=== PATIENT | male | born 1955 | race Two or more races ===

== ENCOUNTER 2023-11-27 06:30 | Day surgery (SDC) | payer OTHER ==
[~2023-11-27] VITALS: Ht 180.3 cm; Wt 100.2 kg
[~2023-11-27 06:30] MED LIST: LISI20TA56 PO
[2023-11-27] MEDS ORDERED: ceFAZolin 2 GM/D5W50ml 50 ML IV ONE (06:43)
[2023-11-27 06:50] VITALS: TEMP 97.7
[2023-11-27] MEDS ORDERED: ROCURONIUM 10MG/ML 10ML VIAL IV ONE (07:06)
[2023-11-27] MEDS ORDERED: SUCCINYLCHOLINE CHLORIDE 20 MG/ML 10ML VIAL IV ONE (07:06)
[2023-11-27] MEDS ORDERED: KETAMINE 50mg/ML 1ml syringe ONE (07:16)
[2023-11-27] MEDS ORDERED: fentaNYL CITRATE 100 MCG/2 ML VL ONE (07:16)
[2023-11-27] MEDS ORDERED: NEOSTIGMINE 1 MG/ML INJ (10mg/10ML VIAL) ONE (07:17)
[2023-11-27] MEDS ORDERED: ETOMIDATE (2MG/ML) 20ML VIAL IV ONE (07:17)
[2023-11-27] MEDS ORDERED: fentaNYL CITRATE 5 ML ONE ×2 (07:17→10:03)
[2023-11-27] MEDS ORDERED: SODIUM CHLORIDE LOCK 50 ML ONE (07:17)
[2023-11-27] MEDS ORDERED: GLYCOPYRROLATE 0.2 MG/ML 1ML VIAL ONE (07:17)
[2023-11-27] MEDS ORDERED: LIDOCAINE 1% INJ PF 5ML AMP ONE (07:17)
[2023-11-27] MEDS ORDERED: ONDANSETRON HCL 4 MG/2 ML VIAL ONE (07:17)
[2023-11-27] MEDS ORDERED: HYDROmorphone HCL 2 MG/ML VL/or syr ONE (07:17)
[2023-11-27] MEDS ORDERED: HYDROmorphone HCL 2 MG/ML VL/or syr IV PRN ×2 (07:45)
[2023-11-27] MEDS ORDERED: MORPHINE SULFATE INJ 2 MG/ml SYRG IV PRN (07:45)
[2023-11-27] MEDS ORDERED: KETOROLAC TROMETH 30 MG/ML 1ML VIAL IV ONE (07:45)
[2023-11-27] MEDS ORDERED: fentaNYL CITRATE 100 MCG/2 ML VL IV PRN (07:45)
[2023-11-27] MEDS ORDERED: MIDAZOLAM HCL 2MG/2ML 2ml VIAL (1mg/ml) ONE (08:03)
[2023-11-27] MEDS ORDERED: ceFAZolin 1GM VL ONE (10:36)
[2023-11-27 11:24] VITALS: O2SAT 95
[2023-11-27] MEDS ORDERED: LABETALOL HCL 5 MG/ML 4ML SYRINGE IV ONE ×2 (12:45)
[2023-11-27] MEDS: METOCLOPRAMIDE HCL 5MG/ml INJ 2ml VIAL IV ONE (12:46)
[2023-11-27 12:51] VITALS: BP 146/75; PULSE 76; RESP 13; O2SAT 100
== END 2023-11-27 13:12 | disposition home or self-care (01) ==
LOC: SUR 06:30
PROVIDERS: ATTEND Surgery
DX: K40.90 Unilateral inguinal hernia, without obstruction or gangrene, not specified as recurrent (principal); I10 Essential (primary) hypertension; E66.9 Obesity, unspecified; Z68.30 Body mass index [BMI] 30.0-30.9, adult; Z79.899 Other long term (current) drug therapy
CPT/HCPCS: 49505; C1713; C1781; J0330; J0690; J1170; J2250; J2405; J2765; J3010; J3490; J7030

== ENCOUNTER 2025-01-18 10:02 | Inpatient (IN) | payer OTHER ==
[~2025-01-18] VITALS: Ht 180.3 cm; Wt 110.3 kg
[2025-01-18] MEDS ORDERED: ACETAMINOPHEN IV 1000 MG/100ML (10MG/ML) IV ONE (10:30)
[2025-01-18] MEDS ORDERED: CELECOXIB 100 MG CAP PO ONE (10:30)
[2025-01-18] MEDS ORDERED: GABAPENTIN 300 MG CAP PO ONE (10:30)
[2025-01-18] MEDS ORDERED: TRANEXAMIC ACID 20 ML ONE (10:34)
[2025-01-18] MEDS ORDERED: KETOROLAC TROMETH 30 MG/ML 1ML VIAL ONE (10:56)
[2025-01-18] MEDS ORDERED: LIDOCAINE 1% INJ PF 5ML AMP ONE (10:56)
[2025-01-18] MEDS ORDERED: GLYCOPYRROLATE 0.2 MG/ML 1ML VIAL ONE (10:56)
[2025-01-18] MEDS ORDERED: PROPOFOL 10 MG/ML 20 ML IV ONE ×3 (10:56→13:37)
[2025-01-18] MEDS ORDERED: ONDANSETRON HCL 4 MG/2 ML VIAL ONE (10:56)
[2025-01-18] MEDS ORDERED: KETAMINE 50mg/ML 1ml syringe ONE (10:57)
[2025-01-18] MEDS ORDERED: BUPIVACAINE 0.25% INJ 50ML VIAL ONE (11:32)
[2025-01-18] MEDS ORDERED: BUPIVACAINE HCL 50 ML ONE (11:32)
[2025-01-18] MEDS: CEFEPIME 1GM/ 50ML 50 ML IV ONE (11:33)
[2025-01-18] MEDS: ceFAZolin 2 GM/D5W50ml 50 ML IV ONE (11:33)
[2025-01-18] MEDS ORDERED: LIDOCAINE HCL 2% TOP JELLY 5ML TOP ONE (12:01)
[2025-01-18] MEDS ORDERED: BUPIVACAINE/DEXTROSE MPF 0.75% 2 ML AMP IT ONE (12:01)
[2025-01-18] MEDS: VANCOMYCIN HCL 1000 MG VL ONE (12:22)
--- NOTE | 2025-01-18 13:39 | DVHOP2 ---
Operative Report - 2 Report Details Date: 01/18/25 Preop Diagnosis: Left knee degenerative arthritis Postop Diagnosis: Left knee degenerative arthritis Surgeon: Sharon Dixon MD Brand Representative: Nate GLOVER Anesthesiologist: Maurilio Leonardo CRNA Anesthesia: Regional Drains: Leatha closed wound suction Implant: DonJoy size nine femur PS, size nine tibial base plate, 10 poly, 35 patella Consent: The patient was informed of the risks and benefits of the procedure. These include but are not limited to complications of anesthesia, postoperative infection, incomplete relief of symptoms, recurrence of symptoms, damage to blood vessels, nerves and tendons, deep venous thrombosis, pulmonary embolism and possible need for repeat surgery in the future. Complications: None Estimated Blood Loss: 100 cc Fluids: See anesthesia record Findings: Varus deformity, osteophytes, denuded cartilage with eburnated bone Indications for Surgery: Left knee degenerative arthritis with severe pain and functional impairment despite nonoperative management Name of Procedure Performed Left total knee arthroplasty Procedure Details Procedure Details: The patient was brought to the operating room and placed on the table in the supine position after being given spinal anesthetic with adequate analgesia obtained. Surgical timeout was performed verifying patient, laterality and p rocedure Preop patient received IV cefepime IV Ancef and IV tranexamic acid. Tourniquet was applied to the lower extremity. Lower extremity was prepped and draped in sterile fashion. Extremity was elevated, exsanguinated Esmarch, and tourniquet inflated. Midline incision was made followed by medial arthrotomy. I exposed the anterior medial and lateral tibial plateau and the anterior distal femur. Bovie and aqua mantis were used for hemostasis. I excised the anterior meniscal tissue with Bovie. I excised a portion of the fat pad with Bovie. The patella was everted and the knee flexed. I drilled the distal femur and suctioned the hole to reduce the risk of fat emboli. I inserted intramedullary guide with 5 degree valgus setting. I pinned the distal femoral cutting block anteriorly. Intramedullary gilberto was removed. Distal femoral cut was made and the block removed. I brought my attention to the tibia setting up the external cutting jig for the tibia paying attention to slope, rotation and varus valgus alignment. I set the depth and pinned the block. I used the external alignment gilberto to aid in checking alignment. Bone cut was made and bone removed releasing soft tissue attachments with Bovie. Cutting block removed. I then checked the extension gap and deemed adequate and removed the femur and tibia pins. I flexed the knee and applied the femoral sizing guide to the f loyda. I checked the size and external rotation setting at 90 degrees to Whitesides line and checking the epicondylar axis. I drilled the holes then removed the sizing guide and pin. I then tapped on the 4 in 1 cutting block and checked with the aisha wing anteriorly to make sure that I would not notch then pinned the block. Cuts were made and the block and pins were removed. Bone was removed with curved osteotome. I used a rongeur to remove any remaining osteophytes at the femur and tibia. I then used a lamina claims adjudicator to open up the back alternating between the medial and lateral side. Any remaining meniscal tissue was excised with scalpel. I used curved osteotome, curette and rongeur to remove any posterior osteophytes. I prophylactically coagulated with aqua mantis. I then tapped on the template for the box cut and pinned it. Box cut was made and bone removed. Template and pin removed. I then tapped on the femoral trial. I then brought my attention back to the tibia sizing it. I used the external alignment gilberto to make sure that rotation and alignment were good. I made a Bovie sherron at the tibial tray sherron identifying rotation for later use. I tried various tibial polytrials. [I then brought my attention to the patella. I sequentially dissected soft tissue with Bovie. I checked the thickness with caliper. I set the appropriate depth of cut on the cutting carlos eduardo de. I attached the cutting guide made my cut. I then sized the patella and made my drill holes. I then placed the patella trial with appropriate depth based on overall precut thickness. ] The patella tracked nicely without thumb pressure. I removed the trials. I pinned the tray and used the reamer and keel punch. The implants were brought into the field while bone preparation was started. I used both normal saline irrigation and the CarboJet to prepare the bone. I used the bone from the cuts to graft the femoral tunnel. Once cement was ready I applied cement to the tibial implant and tibial bone tapped it on and removed excess cement in usual fashion. In similar fashion I tapped on the femoral implant. I inserted the trial polyethylene and brought the knee into 30 degrees flexion. [I then applied the patella implant in similar fashion holding pressure with the pressurization device.] I irrigated with bactisurge irrigant. Once cement cured, I checked stability and range of motion as well as patella tracking. I inserted the poly trials and again checked stability then decided on the size 10 poly. Tourniquet was released and hemostasis maintained with aqua mantis. Poly inserted then range of motion, patellar tracking and stability again checked. I used a 2 grams of vancomycin half of which was placed deep and half superficial. I repaired the extensor mechanism with the knee in flexion with #1 Ethibond interrupted [id number]. Deep subcutaneous tissue was closed with 0 Vicryl. Superficial subcutaneous tissue was closed with 2-0 vicryl interrupted. Skin was closed with carlin. I then applied the [leatha closed wound suction]. Patient tolerated the procedure well and was brought to recovery room in stable condition. Condition Stable Disposition Still a Patient SHARON DIXON MD Jan 18, 2025 13:39
[2025-01-18] MEDS ORDERED: ACETAMINOPHEN 325 MG TAB PO PRN (13:45)
[2025-01-18] MEDS ORDERED: ceFAZolin 2 GM/D5W50ml 50 ML IV SCH (14:00)
[2025-01-18 14:04] VITALS: PULSE 49; RESP 14; O2SAT 98
[2025-01-18] MEDS ORDERED: HYDROmorphone HCL 2 MG/ML VL/or syr IV PRN (14:15)
[2025-01-18] MEDS ORDERED: ONDANSETRON HCL 4 MG/2 ML VIAL IV PRN (14:15)
[2025-01-18] MEDS ORDERED: NALOXONE HCL 0.4 MG/ML VIAL IV PRN (14:15)
[2025-01-18] MEDS ORDERED: hydrALAZINE HCL 20 MG/ML VL IV PRN (14:15)
[2025-01-18] MEDS ORDERED: fentaNYL CITRATE 100 MCG/2 ML VL IV PRN (14:15)
[2025-01-18] MEDS ORDERED: FLUMAZENIL 0.1 MG/ML INJ 10ML MDV IV PRN (14:15)
--- NOTE | 2025-01-18 15:33 | DVH ---
CLINICAL INDICATION: Postop TECHNIQUE: XY L KNEE 3V XRAY Comparison: None FINDINGS/IMPRESSION: : Expected findings post left knee arthroplasty.
[2025-01-18 16:10] VITALS: BP 148/78; PULSE 57; RESP 18; TEMP 96.7; TEMP 97.7; O2SAT 97
[2025-01-18] MEDS: ACETAMINOPHEN 325 MG TAB PO SCH (17:43)
[2025-01-18] MEDS: D5W/LACTATED RINGERS 1,000 ML IV SCH (17:44)
[2025-01-18] MEDS: KETOROLAC TROMETH 30 MG/ML 1ML VIAL IV SCH (17:44)
[2025-01-18 21:00] VITALS: BP 155/88; PULSE 67; RESP 18; TEMP 97.6; O2SAT 98
[2025-01-18] MEDS: PREGABALIN 25 MG CAP PO SCH (21:01)
[2025-01-18] MEDS: ceFAZolin 2 GM/D5W50ml 50 ML IV SCH (21:05)
[2025-01-19 01:00] VITALS: BP 129/68; PULSE 65; RESP 18; TEMP 97.8; O2SAT 94
[2025-01-19 04:09] LABS: Hematocrit 41.5 % (41.0-53.0); Hemoglobin 14.0 g/dL (13.5-17.5); Mean Corpuscular Hemoglobin 30.7 pg (28.0-32.0); Mean Corpuscular Volume 91.2 fL (80.0-100.0); Nucleated Red Blood Cells % 0.1 %
[2025-01-19 04:19] LABS: Anion Gap 9 (5-15); Carbon Dioxide 23 mmol/L (20-31); Potassium 4.7 mmol/L (3.5-5.1); Sodium 140 mmol/L (136-145)
[2025-01-19 04:20] LABS: Calcium 9.7 mg/dL (8.7-10.4)
[2025-01-19 04:22] LABS: Chloride 108 mmol/L (98-107)
[2025-01-19 04:25] LABS: BUN/Creatinine Ratio 16.8 (10.0-20.0); Blood Urea Nitrogen 17 mg/dL (9-23)
[2025-01-19 04:28] LABS: Glucose 150 mg/dL (74-106)
[2025-01-19 05:00] VITALS: BP 149/92; PULSE 66; RESP 18; TEMP 98; O2SAT 98
[2025-01-19 08:20] VITALS: PULSE 70; O2SAT 96
[2025-01-19 09:00] VITALS: BP 157/83; PULSE 70; RESP 17; TEMP 98.1; O2SAT 96
--- NOTE | 2025-01-19 09:20 | DVHDS2 ---
Discharge Summary Date of Admission Jan 18, 2025 at 13:39 Date of Discharge: Jan 19, 2025 Labs/Diagnostic Data: Laboratory Results Test 01/19/25 03:24 White Blood Count 12.0 10^3/uL (4.4-10.8) Red Blood Count 4.55 10^6/uL (4.5-5.90) Hemoglobin 14.0 g/dL (13.5-17.5) Hematocrit 41.5 % (41.0-53.0) Mean Corpuscular Volume 91.2 fL (80.0-100.0) Mean Corpuscular Hemoglobin 30.7 pg (28.0-32.0) Mean Corpuscular Hemoglobin Concent 33.7 g/dL (32.0-36.0) Red Cell Distribution Width 15.5 % (11.8-14.3) Platelet Count 225 10^3/uL (140-450) Mean Platelet Volume 8.4 fL (6.9-10.8) Neutrophils (%) (Auto) 89.5 % (37.0-80.0) Lymphocytes (%) (Auto) 5.3 % (10.0-50.0) Monocytes (%) (Auto) 5.2 % (0.0-12.0) Eosinophils (%) (Auto) 0.0 % (0.0-7.0) Basophils (%) (Auto) 0.0 % (0.0-2.0) Neutrophils # (Auto) 10.7 10 ^3/uL (1.6-8.6) Lymphocytes # (Auto) 0.6 10 ^3/uL (0.4-5.4) Monocytes # (Auto) 0.6 10 ^3/uL (0-1.3) Eosinophils # (Auto) 0 10 ^3/uL (0-0.8) Basophils # (Auto) 0 10 ^3/uL (0-0.2) Nucleated Red Blood Cells 0.1 % Sodium Level 140 mmol/L (136-145) Potassium Level 4.7 mmol/L (3.5-5.1) Chloride Level 108 mmol/L (98-107) Carbon Dioxide Level 23 mmol/L (20-31) Anion Gap 9 (5-15) Blood Urea Nitrogen 17 mg/dL (9-23) Creatinine 1.01 mg/dL (0.700-1.30) Glomerular Filtration Rate Calc 80 mL/min (>90) BUN/Creatinine Ratio 16.8 (10.0-20.0) Serum Glucose 150 mg/dL (74-106) Calcium Level 9.7 mg/dL (8.7-10.4) Other Laboratory Tests 01/19/25 03:24 Brief Hx & Hospital Course: Patient was brought to the hospital yesterday to undergo a left total knee arthroplasty, he has tolerated the procedure well without any complications and was kept overnight for postoperative observation. He has remained medically stable denying any overnight events and reports some postoperative knee pain that is being well managed with the pain medication. Patient notes that he was able to get up and walk with the help of his walker and was able to get to the door of his room yesterday after surgery but has not yet gotten up and walked today. Patient was otherwise feeling well denying any other complaints or concerns during my evaluation and would like to go home. Condition at Discharge: Stable Final Diagnosis/Problems List Left knee degenerative arthritis Discharge Disposition: Home Discharge Instruct/Medications Diet: Regular Activity: See Comment Follow Up/Referral: I instructed the patient to follow up with our office in 10-14 days for his 1st postoperative evaluation Medications: Rx sent via our outpatient EMR system Scheduled Lisinopril (Lisinopril), 10 MG PO QPM, (Reported) Discharge Statement: "Patient was advised to return to the ER or call 911 if any headaches, dizziness, shortness of breath, chest pain, abdominal pain, bleeding, fevers, or worsening of medical condition. Patient was counseled about treatment plan, medications, possible side effects, patientverbalized understanding. All questions were answered to the best of my ability. This discharge took greater then 30 minutes in planning, reviewing documentation, counseling the patient, and discussing with other team members." ASSESSMENT ASSESSMENT Assessment Left knee degenerative arthritis CULLEN WRIGHT Jan 19, 2025 09:20
--- NOTE | 2025-01-19 09:22 | DVHPN2 ---
Progress Note - Dictate Date Seen: Jan 19, 2025 Medical Necessity Reason Pt with a Central, PICC or Fol: No Subjective PATIENT WAS LYING COMFORTABLY IN BED DURING MY EVALUATION REPORTS SOME POSTOPERATIVE KNEE PAIN THAT IS BEING WELL MANAGED WITH THE HELP OF PAIN MEDICATION. PATIENT NOTES THAT HE WAS ABLE TO GET UP AND WALK WITH THE HELP OF HIS WALKER YESTERDAY RIGHT AFTER SURGERY AND WAS ABLE TO GET DOWN TO THE DOOR OF HIS ROOM BEFORE RETURNING TO HIS BED. PATIENT NOTES THAT HE HAS NOT BEEN ABLE TO GET UP AND WALK TODAY. PATIENT IS OTHERWISE FEELING WELL DENYING ANY OTHER COMPLAINT OR CONCERN DURING MY EVALUATION. vital signs Vital Sign Date Time Temp Pulse Resp B/P (MAP) Pulse Ox O2 Delivery O2 Flow Rate FiO2 01/19/25 05:00 98.0 66 18 149/92 (111) 98 98.0 01/18/25 20:00 Room Air* 0 21 Total Intake and Output 01/18/25 01/18/25 01/19/25 15:00 23:00 07:00 Intake Total 200 ml 0 ml 400 ml Output Total 500 ml 100 ml 900 ml Balance -300 ml -100 ml -500 ml medications Current Medications Medications Dose Ordered Sig/Ronnie Route Start Time Stop Time Status Last Admin Dose Admin Dextrose/Lactated Ringer's 1,000 ml @ 100 mls/hr Q10H IV 01/18/25 13:45 01/18/25 17:44 100 MLS/HR Acetaminophen 650 mg Q4HP PRN PO 01/18/25 13:45 Acetaminophen 650 mg Q6HR PO 01/18/25 18:00 01/19/25 05:00 650 MG Ketorolac Tromethamine 15 mg Q6HR IV 01/18/25 18:00 01/23/25 17:59 01/19/25 05:00 15 MG Pregabalin 50 mg BID PO 01/18/25 22:00 01/18/25 21:01 50 MG Oxycodone HCl 5 mg Q4HP PRN PO 01/18/25 13:45 01/18/25 19:52 5 MG Oxycodone HCl 10 mg Q4HP PRN PO 01/18/25 13:45 Aspirin 81 mg BID PO 01/19/25 10:00 Oxycodone HCl 10 mg ONCE PRN PO 01/18/25 14:15 objective A&O X4 IN NO ACUTE DISTRESS KNEE RANGE OF MOTION GROSSLY LIMITED WITH PAIN ON MOVEMENT JOAQUIN DRESSING CLEAN, DRY, INTACT, AND MAINTAINING SUCTION NO DISTAL EDEMA OR CALF TENDERNESS TO PALPATION NEUROVASCULARLY INTACT WITH CAP REFILL LESS THAN 2 SECONDS laboratory and microbiology Laboratory Tests 01/19/25 03:24 Test 01/19/25 03:24 Range/Units Serum Glucose 150 H 74-106 mg/dL Assessment/Plan Patient to be discharged home once he has been able to get up and walk with the help of physical therapy and his walker and he is able to get down to the nurse's station and back to his bed. I instructed the patient to follow up with our office in 10-14 days for his 1st postoperative evaluation and to maintain his dressings clean, dry, intact, and maintaining suction and to call our office if he has any further questions or concerns. Rx sent via our outpatient EMR system. Patient understood and agreed. Plan discussed with: Patient CULLEN WRIGHT Jan 19, 2025 09:22
--- NOTE | 2025-01-19 09:26 | DVHINCON2 ---
Date of service: Jan 19, 2025 Reason for Consultation Medical management while in the hospital History of Present Illness This is a 69-year-old gentleman with hypertension and osteoarthritis admitted to the hospital underwent a successful knee surgery. Postop patient is monitor. His blood pressure systolic in the 150-170 range. Per patient at home his blood pressure ranges in the 160-180 range. Patient is nonadherence to his lisinopril. 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 Currently he denies any chest pain or shortness for breath. No dizziness. Other review of systems reviewed normal. Past Medical History Hypertension osteoarthritis obesity with a BMI 33 Past Surgical History Knee surgery Family History: Arthritis G8 MOTHER, Onset:60 years & older G8 BROTHER, Onset:60 years & older FH: prostate cancer G8 FATHER, Onset:60 years & older Hypertension G8 MOTHER, Onset:60 years & older Allergies: Coded Allergies: NO KNOWN ALLERGIES (Unverified , 11/25/23) Home Meds Active Scripts Lisinopril (Lisinopril) 20 Mg Tab, 20 MG PO BID, #60 TAB Prov:MELO BAZAN MD 01/19/25 Current Medications Current Medications Medications (Trade) Dose Ordered Sig/Ronnie Route PRN Reason Start Time Stop Time Status Last Admin Dextrose/Lactated Ringer's 1,000 ml @ 100 mls/hr Q10H IV 01/18/25 13:45 01/18/25 17:44 Acetaminophen (Tylenol Tablet) 650 mg Q4HP PRN PO MILD PAIN (1-3 PAIN SCALE) 01/18/25 13:45 Cefazolin Sodium/ Dextrose 50 ml @ 50 mls/hr Q8HR IV 01/18/25 14:00 01/18/25 21:02 DC Acetaminophen (Tylenol Tablet) 650 mg Q6HR PO 01/18/25 18:00 01/19/25 05:00 Ketorolac Tromethamine (Toradol Injection) 15 mg Q6HR IV 01/18/25 18:00 01/23/25 17:59 01/19/25 05:00 Pregabalin (Lyrica Capsule) 50 mg BID PO 01/18/25 22:00 01/18/25 21:01 Oxycodone HCl 5 mg Q4HP PRN PO MODERATE PAIN (4-6 PAIN SCALE) 01/18/25 13:45 01/18/25 19:52 Oxycodone HCl 10 mg Q4HP PRN PO SEVERE PAIN (7-10 PAIN SCALE) 01/18/25 13:45 Aspirin 81 mg BID PO 01/19/25 10:00 Ondansetron HCl (Zofran) 4 mg ONCE PRN IV NAUSEA / VOMITING 01/18/25 14:15 01/18/25 15:10 DC Naloxone HCl (Narcan) 0.4 mg Q10M PRN IV NARCOTIC REVERSAL 01/18/25 14:15 01/18/25 15:10 DC Flumazenil (Romazicon Injection) 0.2 mg ONCE PRN IV BENZODIAZEPINE REVERSAL 01/18/25 14:15 01/18/25 15:10 DC Hydralazine HCl (Apresoline Injection) 5 mg Q10M PRN IV SBP>160 01/18/25 14:15 01/18/25 15:10 DC Ephedrine Sulfate (ePHEDrine SULFATE) 10 mg Q10M PRN IV SBP LESS THAN 90 01/18/25 14:15 01/18/25 15:10 DC Fentanyl Citrate 25 mcg Q1HP PRN IV BREAKTHROUGH PAIN (7-10) 01/18/25 14:15 01/18/25 15:10 DC Hydromorphone HCl (Dilaudid Injection) 0.5 mg Q10M PRN IV SEVERE PAIN (7-10 PAIN SCALE) 01/18/25 14:15 01/18/25 15:10 DC Oxycodone HCl 10 mg ONCE PRN PO MODERATE PAIN (4-6 PAIN SCALE) 01/18/25 14:15 Cefazolin Sodium/ Dextrose 50 ml @ 50 mls/hr Q8H IV 01/18/25 21:00 01/19/25 05:59 DC 01/19/25 05:01 Review of Systems No chest pain dizziness shortness for breath or lightheadedness. Other review of systems reviewed normal. Vital Signs Vital Signs Date Time Temp Pulse Resp B/P (MAP) Pulse Ox O2 Delivery O2 Flow Rate FiO2 01/19/25 05:00 98.0 66 18 149/92 (111) 98 98.0 01/18/25 20:00 Room Air* 0 21 Physical Exam Alert awake oriented x3. Comfortable in bed without any acute distress. HEENT neck supple no JVD. Heart regular rate and rhythm S1-S2. Lungs fair air movement without rales wheezes. Abdomen obese soft nontender positive bowel sounds. Extremities no edema positive pulses. Labs/Diagnostic Data Labs Test 01/19/25 03:24 Range/Units White Blood Count 12.0 H 4.4-10.8 10^3/uL Red Blood Count 4.55 4.5-5.90 10^6/uL Hemoglobin 14.0 13.5-17.5 g/dL Hematocrit 41.5 41.0-53.0 % Mean Corpuscular Volume 91.2 80.0-100.0 fL Mean Corpuscular Hemoglobin 30.7 28.0-32.0 pg Mean Corpuscular Hemoglobin Concent 33.7 32.0-36.0 g/dL Red Cell Distribution Width 15.5 H 11.8-14.3 % Platelet Count 225 140-450 10^3/uL Mean Platelet Volume 8.4 6.9-10.8 fL Neutrophils (%) (Auto) 89.5 H 37.0-80.0 % Lymphocytes (%) (Auto) 5.3 L 10.0-50.0 % Monocytes (%) (Auto) 5.2 0.0-12.0 % Eosinophils (%) (Auto) 0.0 0.0-7.0 % Basophils (%) (Auto) 0.0 0.0-2.0 % Neutrophils # (Auto) 10.7 H 1.6-8.6 10 ^3/uL Lymphocytes # (Auto) 0.6 0.4-5.4 10 ^3/uL Monocytes # (Auto) 0.6 0-1.3 10 ^3/uL Eosinophils # (Auto) 0 0-0.8 10 ^3/uL Basophils # (Auto) 0 0-0.2 10 ^3/uL Nucleated Red Blood Cells 0.1 % Sodium Level 140 136-145 mmol/L Potassium Level 4.7 3.5-5.1 mmol/L Chloride Level 108 H 98-107 mmol/L Carbon Dioxide Level 23 20-31 mmol/L Anion Gap 9 5-15 Blood Urea Nitrogen 17 9-23 mg/dL Creatinine 1.01 0.700-1.30 mg/dL Glomerular Filtration Rate Calc 80 >90 mL/min BUN/Creatinine Ratio 16.8 10.0-20.0 Serum Glucose 150 H 74-106 mg/dL Calcium Level 9.7 8.7-10.4 mg/dL Assessment He is clinically stable. I will resume his home lisinopril. However I have educated the patient that he should take blood pressure medication daily and increase his blood pressure medicine to 20 mg twice a day to keep his blood pressure below 140/80. We will give him clonidine one dose prior to discharge. Patient he has been discharged today by Orthopedic. Patient advised to follow up with the Dr. Velasquez his store stocker and primary care physician after two weeks for blood pressure management. He verbalized understanding of this and agree with care plan as outlined. Problems(with codes): (1) Hypertension (2) Obesity (BMI 30.0-34.9) (3) Osteoarthritis Plan discussed with: Patient MELO BAZAN MD Jan 19, 2025 09:26
[2025-01-19] MEDS: LISINOPRIL 5 MG TAB PO SCH (10:15)
[2025-01-19 13:00] VITALS: BP 155/77; PULSE 69; RESP 18; TEMP 98; O2SAT 98
[2025-01-19] MEDS ORDERED: LISI20TA56 PO (13:49)
[2025-01-19 14:42] VITALS: BP 151/79; PULSE 72; RESP 16; TEMP 36.7; O2SAT 96
[2025-01-19] MEDS ORDERED: SENNA 8.6 MG TAB PO SCH (22:00)
== END 2025-01-19 16:25 | disposition home or self-care (01) | DRG 470 ==
LOC: SUR 10:02 → OVERFLOW 13:39 → WEST WING 15:52
PROVIDERS: ADMIT Orthopaedic Surgery; ATTEND Orthopaedic Surgery
PROC: 0SRD0J9 Replacement of Left Knee Joint with Synthetic Substitute, Cemented, Open Approach (ICD-10-PCS; principal; 2025-01-18 11:33)
DX: M17.12 Unilateral primary osteoarthritis, left knee (principal); E66.9 Obesity, unspecified; I10 Essential (primary) hypertension; Z82.49 Family history of ischemic heart disease and other diseases of the circulatory system; Z80.42 Family history of malignant neoplasm of prostate; Z68.34 Body mass index [BMI] 34.0-34.9, adult; Z79.899 Other long term (current) drug therapy
CPT/HCPCS: 36415; 73562; 80048; 85025; 86850; 86900; 86901; 97163; G0378; J1100; J1885; J2405; J2704; J3490